=== PATIENT | female | born 1950 | race Caucasian/White ===

== ENCOUNTER → 2021-08-13 12:55 | Outpatient (CLI) | payer MEDICARE, MEDICAID, SELFPAY ==
--- NOTE | 2021-08-13 | DI.RAD.S_ITS ---
PROCEDURE: FL BARIUM SWALLOW W SPEECH INDICATIONS: Dysphonia COMPARISON: None. TECHNIQUE: Examination was conducted in conjunction with speech pathology per standard protocol. In the lateral projection, filming was performed of the patient swallowing. AP projection filming may also be performed with patient swallowing. COMPARISON: FINDINGS: Function: The oral preparatory phase appears normal, with proper containment. The subsequent oral propulsive phase, pharyngeal phase, and esophageal phase of swallowing also appear normal with all proffered substances. Laryngotracheal penetration was identified with swallowing of barium contrast and liquids. No laryngotracheal aspiration. No pathologic vallecular pooling. Morphology: No cricopharyngeal bar is identified. No cervical esophageal webs. No Zenker's diverticulum. No strictures. IMPRESSION: 1. Laryngotracheal penetration. 2. No aspiration. Please see speech pathology report for additional study details. Dictated by: Chanel Osuna MD, PhD on 08/13/2021 at 15:21 Approved by: Chanel Osuna MD, PhD on 08/13/2021 at 15:22
--- NOTE | 2021-08-13 17:33 | ST.SWALLOW ---
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 Reynaldo Maradiaga Reason for Referral Parkinson's, Dysphagia, Dysphonia Setting Setting Outpatient Care Patient Information Identification Type Name,ID Card Patient History The pt is a 70-yr-old female diagnosed with Parkinson's disease and Fibromyalsia who c/o coughing and choking on food and liquid, as well as frequent drooling. Additionally, she c/o frequent hoarseness of voice. Subjective Observations The pt arrived on time, self- ambulatory with cane. She provided case history supplemental to medical records. She was seated in fluoroscopy chair, and MBSS procedure was explained. She was agreeable to proceeding. Patient Positioning Position View Lat-A/P Imaging Lateral View Textures Administered Trials Presented Thin Liquid via Spoon,Thin Liquid via Cup,Chloride Liquid via Spoon,Chloride Liquid via Cup,Honey Liquid via Spoon, Dysphagia Blenderized Textures ,Regular Textures Oral Phase Source: MBSIMP (TM) (C) Bolus Specific Scoring Grid Lip Closure Minimal Impairment Tongue Control During Bolus Hold Mild Impairment Bolus Prep/Mastication Moderate Impairment Bolus Transport/Lingual Motion Mild Impairment A/P Lingual Propulsion Delay Yes Oral Residue Mild Impairment Residue Clearing Mild Impairment Nasal Regurgitation No Additional Oral Phase Observations Oral Peripheral Exam: Features were symmetrical with mild weakness overall, particularly lingual. ROM was WFL. The pt was wearing upper dentures that fit pretty good. She was otherwise edentulous with exception of two bottom left teeth, one of which was broken at the gum line. She has lower dentures but they no longer fit her, so she does not wear them. This restricts her from eating tough foods, such as tough meats, and crunchy foods such as raw carrots or apples. Her soft palate elevated upon phonation . Coloring and integrity of the oral mucosa were WNL. Oral Prep Phase: Extensive mastication/prep of paste and cookie with paste was observed with escape of bolus to the floor of the mouth. This appears in part secondary to dentition and contributed by lingual weakness. No anterior loss or drooling was observed during the study. Pharyngeal Phase Source: MBSIMP (TM) (C) Bolus Specific Scoring Grid Delayed Initiation of Pharyngeal Swallow Yes: With paste and cookie trials Soft Palate Elevation No Impairment (WNL) Tongue Base Strength/Range of Motion Moderate Impairment Residue Along the Tongue Base Yes Clearance of Residue Along Tongue Base Mild Impairment Laryngeal Elevation Moderate Impairment Anterior Hyoid Movement Moderate Impairment Epiglottic Range of Motion No Impairment (WNL) Vallecular Residue Yes Clearance of Vallecular Residue Mild Impairment Laryngeal Vestibular Closure Moderate Impairment Pharyngeal Stripping Wave Mild Impairment Posterior Pharyngeal Wall Residue Yes Clearance of Posterior Pharyngeal Wall Mild Impairment Residue Upper Esophageal Sphincter Opening No Impairment (WNL) Residue in the Pyriform Sinuses Yes: Minimal Clearance of Residue in the Pyriform WFL Sinuses Esophageal Clearance Upright Position WFL Pharyngoesophageal Backflow Observed No Additional Pharyngeal Phase Observations Laryngeal penetration to the level of the VFs (PAS 4 and 5) was observed with all tsp and single sip trials of thin and nectar-thick liquids. At times, approximately half of the bolus entered the larynx to the level of the VFs at onset of swallow, with the majority ejected during the swallow, leaving trace to mild laryngeal residue. For pt safety, consecutive sips were not administered. All penetration was silent in nature. The pt was instructed to cough after each episode. This was minimally effective, clearing some but not the majority of laryngeal residue. Assessed swallow with changes to head posture. No benefit was noted with chin tuck and head turn to the right; head turn to the left reduced the amount of penetrated contrast though did not provide complete airway protection. No tracheal aspiration was observed. Incomplete airway closure is secondary to reduced hyolaryngeal elevation and anterior propulsion. Base of tongue was also noted to be weak. Pharyngeal constriction was present but reduced. A/P View Textures Administered Trials Presented Chloride Liquid via Spoon,Honey Liquid via Spoon A/P View Observations Pharyngeal Contraction No Impairment (WNL) Residue Observed Valleculae Right,Valleculae Left Additional Observations Reside at vallecula and pyriform sinuses slightly greater on left side than right. Esophageal Observations Esophageal Function Mildly slowed esophageal clearance of NTL was observed at distal to medial level and again above LES. This may be secondary to pt's age. Recommend the pt discuss with PCP if GI consultation is warranted. Clinical Impressions Dysphagia Type Moderate Oropharyngeal Dysphagia Findings The pt presents with moderate oropharyngeal dysphagia. Oral dysphagia is secondary to reduced dentition and lingual weakness resulting in decreased bolus control and slowed a/p transit. Pharyngeal dysphagia is characterized by reduced hyolaryngeal elevation and anterior propulsion, resulting in incomplete airway closure and consistent laryngeal penetration of thin and nectar -thick liquids, silent in nature. The pt produced cough of moderate strength upon cuing, which was mildly beneficial. No aspiration was observed. Additionally, reduced base of tongue strength and pharyngeal constriction contributed to pharyngeal residue, greater on left side than right, indicating increased weakness on left side. Airway protection was improved with head turn to left side. Rehabilitation Potential Good Patient Appropriate for Therapy Yes Recommendations Diet Liquids Order Thin Diet Order Mechanical Soft Medication Recommendation As Tolerated Aspiration Precautions Recommended Precautions Upright at 90 Degrees,Small Bites/Sips,Double Swallow,Left Head Turn Treatment Plan Therapy Recommendations Outpatient Speech Therapy Additional Therapy Recommendations The pt's concerns with drooling can be addressed in outpatient tx as well. Additional Recommended Referrals GI consultation may be warranted Compensatory Strategies Recommendations Sitting Upright (90 deg),Turn Head Left,Double Swallow Short Term Goals 1. The pt will perform exercises to improve strength, coordination and ROM of swallow musculature to reduce risk of aspiration and anterior saliva loss. 2. The pt will perform compensatory strategies to reduce risk of aspiration and anterior saliva loss. Residential Goals 1. The pt will tolerate least restrictive diet to meet nutrition and hydration needs. Additional Recommendations/Comments Voice evaluation and tx as indicated may be included in POC.
== END ==
PROVIDERS: Referring Provider Otolaryngology; Visit Provider Otolaryngology
DX: R13.19 Other dysphagia (principal); R49.0 Dysphonia; G20 Parkinson's disease
CPT/HCPCS: 74230; 92611

== ENCOUNTER → 2021-12-12 11:09 | Outpatient (CLI) | payer MEDICARE, MEDICAID, SELFPAY ==
--- NOTE | 2021-12-12 | DI.RAD.S_ITS ---
PROCEDURE: XR DEXA AXIAL SKELETON INDICATIONS: Age-related osteoporosis without current pathologi COMPARISON: [facility], CR, DEXA COMPLETE, 02/16/2019, 14:37. FINDINGS: This blank DEXA report has been sent in error by the PACS system. The correct and complete report will be forthcoming in 1-2 days. Thank you for your patience and understanding. Dictated by: Alfonzo Arita M.D. on 12/12/2021 at 16:19 Approved by: Alfonzo Arita M.D. on 12/12/2021 at 16:19
== END ==
PROVIDERS: Referring Provider Internal Medicine; Visit Provider Internal Medicine
DX: Z13.820 Encounter for screening for osteoporosis; M85.851 Other specified disorders of bone density and structure, right thigh; M85.852 Other specified disorders of bone density and structure, left thigh; Z78.0 Asymptomatic menopausal state
CPT/HCPCS: 77080; 77081